=== PATIENT | female | born 1975 | race Caucasian/White ===

== ENCOUNTER → 2020-02-21 | Outpatient (CLI) | payer MEDICAID | LOC: MAMMO 09:55 | DX: Z00.00 Encounter for general adult medical examination without abnormal findings (principal); Z12.31 Encounter for screening mammogram for malignant neoplasm of breast; Z13.220 Encounter for screening for lipoid disorders; N64.4 Mastodynia ==

== ENCOUNTER → 2021-03-04 | Outpatient (CLI) | payer MEDICAID ==
[2021-03-04 10:15] LABS: BASO # 0.03 K/mm3 (0.02-0.10); EOS # 0.24 K/mm3 (0.04-0.40); EOS % 2.9 % (1.0-5.0); HEMATOCRIT 46.9 % (37.0-47.0); HEMOGLOBIN 15.8 g/dL (12.5-16.0); LYMPH# 0.71 K/mm3 (1.50-4.00); MEAN CELL VOLUME 98 fl (78-100); MEAN CORPUSCULAR HEMOGLOBIN 33 pg (27-31); MEAN CORPUSCULAR HGB CONC 34 g/dL (33-37); MEAN PLATELET VOLUME 10.3 fl (7.4-10.4); MONO # 0.33 K/mm3 (0.20-0.80); NEU # 6.94 K/mm3 (1.40-6.50); PLATELET COUNT 274 K/mm3 (130-400); RED BLOOD COUNT 4.79 M/mm3 (4.10-5.30); RED CELL DISTRIBUTION WIDTH 11.8 % (11.5-14.5); WHITE BLOOD COUNT 8.3 K/mm3 (4.8-10.8)
[2021-03-04 10:19] LABS: ALBUMIN 4.3 g/dL (3.5-5.0); POTASSIUM 3.9 mmol/L (3.5-5.1)
[2021-03-04 10:21] LABS: CALCIUM 9.7 mg/dL (8.3-10.5)
[2021-03-04 10:22] LABS: TOTAL PROTEIN 7.3 g/dL (6.4-8.3)
[2021-03-04 10:24] LABS: TOTAL BILIRUBIN 0.7 mg/dL (0.2-1.2)
[2021-03-04 13:01] LABS: ERYTHROCYTE SEDIMENTATION RATE 4 mm/hr (0-20)
== END ==
LOC: LAB 09:43
PROVIDERS: Nurse Practitioner Family
DX: L30.9 Dermatitis, unspecified (principal)